=== PATIENT | female | born 2005 | race Caucasian/White ===

== ENCOUNTER → 2024-04-26 06:51 | Outpatient (REF) | payer OTHER, SELFPAY | LOC: MRI 06:51 | PROVIDERS: ATTENDING PHYSICIAN Family Medicine; FAMILY PHYSICIAN Nurse Practitioner Primary Care | DX: S62.009A Unspecified fracture of navicular [scaphoid] bone of unspecified wrist, initial encounter for closed fracture (principal) | CPT/HCPCS: 73221 ==

== ENCOUNTER → 2024-06-11 06:40 | Outpatient (REF) | payer OTHER, SELFPAY | LOC: MRI 06:40 | PROVIDERS: ATTENDING PHYSICIAN Nurse Practitioner Primary Care | DX: M54.50 Low back pain, unspecified (principal); M41.9 Scoliosis, unspecified | CPT/HCPCS: 72148 ==